=== PATIENT | male | born 1965 | race Caucasian/White ===

== ENCOUNTER 2016-12-20 10:05 | Observation (INO) ==
--- NOTE | 2016-12-20 10:18 | Emergency Department Note ---
Disposition Clinical Impression: DM type 2 (diabetes mellitus, type 2) Qualifiers: Diabetes mellitus complication status: without complication Diabetes mellitus penitentiary insulin use: without penitentiary use Qualified Code(s): E11.9 - Type 2 diabetes mellitus without complications Pancreatitis Qualifiers: Chronicity: acute Pancreatitis type: alcohol induced Acute pancreatitis complication: unspecified Qualified Code(s): K85.20 - Alcohol induced acute pancreatitis without necrosis or infection Disposition: Admitted As Inpatient Condition: Fair Abdominal Pain HPI - General Chief Complaint: ED Abdominal Pain Stated Complaint: Abdominal pain, COLE, and cough Time Seen by Provider: 12/20/16 10:15 Source: patient Mode of arrival: ambulatory Limitations: no limitations Nursing Notes Reviewed: Yes Vital Signs Reviewed: Yes - History of Present Illness HPI Narrative: Patient just released from the hospital for pancreatitis comes back up any shortness of breath chest pain and epigastric pain patient states that the pancreatitis is flaring up patient states that he is unable to ambulate because of shortness of breath patient denies any Pain swelling or edema states his appetite he is unable to eat because the abdominal epigastric pain patient states is progressively worsening he denies fever chills lightheadedness he states that he is having shortness of breath but no cough no hemoptysis no sputum production also systems reviewed otherwise negative patient does note an area of erythema on the left-hand side of his body that is developed over the past couple days Pt Subjective Complaint: abdominal pain 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 Denies: vomiting, diarrhea, fever, chills, constipation, dysuria, hematemesis, hematochezia, melena, hematuria, anorexia, syncope Treatments prior to arrival: prescription analgesics - Related Data Home Medications Medication Instructions Recorded Confirmed Amlodipine Besylate 10 mg PO DAILY 08/25/15 12/20/16 Atorvastatin [Lipitor] 40 mg PO DAILY 08/25/15 12/20/16 Metoprolol Succinate 200 mg PO DAILY 08/25/15 12/20/16 Omeprazole 20 mg PO DAILY 08/25/15 12/20/16 Gabapentin [Neurontin] 100 mg PO TID 12/16/16 12/20/16 Previous Rx's Medication Instructions Recorded Magnesium Oxide [Mag-Ox] 400 mg PO DAILY #3 tablet 12/19/16 Phos-NaK [Neutra-Phos] 1 each PO BID #6 powd.pack 12/19/16 Potassium Chloride 10 meq PO DAILY #3 tab.er.prt 12/19/16 metFORMIN [Glucophage] 500 mg PO BIDWM #60 tablet 12/19/16 Allergies Allergy/AdvReac Type Severity Reaction Status Date / Time No Known Allergies Allergy Verified 11/17/14 14:53 All systems ED: reviewed and negative except as stated. Review of Systems: As Per HPI Constitutional: Denies: fever, chills Eyes: Denies: eye pain ENT ED: Denies: ear pain Cardiovascular: Denies: chest pain, palpitations Respiratory: Denies: cough, dyspnea, wheezes Gastrointestinal: Reports: abdominal pain, nausea, vomiting Genitourinary: Denies: urgency, dysuria Musculoskeletal: Denies: back pain Integumentary: Denies: rash Neurological: Denies: headache Psychiatric: Denies: anxiety Endocrine: Denies: fatigue Hematological/Lymphatic: Denies: easy bleeding Allergic/Immunologic: Denies: facial swelling Abdominal Pain PMH - Past Medical History Medical history: Reports: arthritis, GERD, hyperlipidemia, hypertension, other Reports: pancreatitis Male Surgical History: Reports: cholecystectomy Psychiatric history: Reports: anxiety - Social History Smoking status: Never smoker Alcohol use: Reports: occasionally, heavy, recent Drug use: Reports: none Physical Exam - General Limitations: no limitations General appearance: alert, in no apparent distress, anxious - Head Head exam: atraumatic, normocephalic, normal inspection - Eye Eye exam: Present: normal appearance, PERRL, EOMI - ENT ENT exam: normal exam, normal oropharynx, mucous membranes moist, normal external ear exam - Neck Neck exam: Present: normal inspection, full ROM, trachea midline - Chest Chest inspection: Present: normal inspection, symmetric chest wall rise. Absent : tenderness - Respiratory Respiratory exam: Present: normal lung sounds bilaterally, accessory muscle use - Cardiovascular Cardiovascular exam: Present: tachycardia, normal heart sounds - Abdominal Exam Abdominal exam: Present: soft, tenderness, guarding, normal bowel sounds. Absent: Non-Tender Abdominal tenderness: Present: epigastrium, moderate - Extremities Exam Extremities exam: Present: normal inspection, full ROM, normal capillary refill. Absent: tenderness, pedal edema, joint swelling, calf tenderness - Expanded Lower Extremity Exam Lower leg exam: Present: Homans' sign Neurovascular/Tendon exam: Present: normal capillary refill, normal fine/light touch Gait: observed and normal - Back Exam Back exam: Present: normal inspection, full ROM. Absent: muscle spasm - Neurological Exam Neurological exam: Present: alert, oriented X3, CN II-XII intact - Psychiatric Psychiatric exam: Present: normal affect, normal mood - Skin Skin exam: Present: warm, dry, intact, normal color Course Course Narrative: Patient seen and examined the patient appears to be markedly uncomfortable dyspneic immediate evaluation and workup started for possibly pulmonary emboli as well as recurrent pancreatitis patient little bit of bruising warmth noted to the left side which could be like an early Pete Munroe sign but I did not see any bleeding or bruising or ecchymosis elsewhere A she was given pain medication mating obtained NPL after adequate hydration the patient was given CT scan after discussion with both him and family IE [id number] and patient then was given additional fluids post CT patient received multiple doses of pain medication here in the ER he will be readmitted for the flare for the pancreatitis which appears to be significant on the CAT scan no evidence of any pulmonary emboli noted patient transferred to [facility] Vital Signs Temperature 97.7 F 12/20/16 10:08 Pulse Rate 133 12/20/16 10:08 Respiratory Rate 26 12/20/16 10:08 Blood Pressure 155/102 12/20/16 10:08 O2 Sat by Pulse Oximetry 98 12/20/16 10:08 Temperature 97.6 F 12/22/16 18:37 Pulse Rate 101 12/22/16 18:37 Respiratory Rate 16 12/22/16 18:37 Blood Pressure 150/99 12/22/16 18:37 O2 Sat by Pulse Oximetry 96 12/22/16 18:37 Oxygen Delivery Oxygen Delivery Room Air Abdominal Pain - MDM Narrative Medical decision making narrative: Pulmonary emboli - Differential Diagnosis Differential Diagnosis: Likely: abdominal pain non-specific, diverticulitis, pancreatitis - Medical Records Medical records reviewed: Yes I reviewed the patient's medical records. - Lab Data Lab results reviewed: Yes I reviewed the patient's lab results. Result diagrams: 12/22/16 05:03 12/22/16 05:03 Lab Results 12/20/16 12/20/16 12/20/16 Range/Units 10:58 11:01 11:03 WBC 7.4 (4.3-11.1) K/mcL RBC 4.35 (4.19-5.50) M/mcL Hgb 12.6 L (12.9-16.9) g/dL Hct 36.0 L (37.5-50.1) % MCV 82.8 L (83.0-100.0) fL MCH 29.0 (28.0-33.3) pg MCHC 35.0 (31.6-35.5) g/dL RDW 12.5 (11.5-14.5) % Plt Count 137 L (140-400) K/mcL MPV 11.2 (9.4-12.4) fL Immature Gran % 1.2 (0-4) % Seg Neutrophils % 74.5 % Lymphocytes % 15.2 % Monocytes % 8.1 % Eosinophils % 0.5 % Basophils % 0.5 % Neutrophils # 5.5 (1.6-8.9) K/mcL Lymphocytes # 1.1 (0.6-4.6) K/mcL Monocytes # 0.6 (0.0-1.3) K/mcL Eosinophils # 0.0 (0.0-0.6) K/mcL Basophils # 0.0 (0.0-0.2) K/mcL PT 12.3 H (9.4-12.1) Seconds INR 1.1 APTT 28.9 (26.0-36.0) Seconds D-Dimer 38496 H (0-500) ng/mLFEU Sodium (136-145) mEq/L Potassium (3.5-4.5) mEq/L Chloride (98-109) mEq/L Carbon Dioxide (19-29) mEq/L BUN (8-26) mg/dL Creatinine (0.72-1.25) mg/dL Est GFR ( Amer) (> 60) Est GFR (Non-Af Amer) (> 60) BUN/Creatinine Ratio (6-26) Glucose (70-99) mg/dL Calculated Osmolality (280-300) Calcium (8.6-10.8) mg/dL Total Bilirubin (0.2-1.2) mg/dL Direct Bilirubin (0.0-0.5) mg/dL Indirect Bilirubin (0.0-1.2) mg/dL AST (5-34) Units/L ALT (0-55) Units/L Alkaline Phosphatase (38-126) Units/L Troponin I (0-0.03) ng/mL Serum Total Protein (6.0-8.3) g/dL Albumin (3.5-5.0) g/dL Globulin (2.4-3.5) g/dL Albumin/Globulin Ratio (1.1-2.2) Lipase (8-78) Units/L Urine Color Yellow (Yellow) Urine Clarity Clear (Clear) Urine pH 6.0 (5.0-8.0) pH Units Ur Specific [place] 1.020 (1.010-1.025) Urine Protein 100 H (Neg-Trace) mg/dL Urine Glucose (UA) 100 H (Normal) mg/dL Urine Ketones >=160 H (Negative) mg/dL Urine Blood Trace-intact H (Negative) Urine Nitrite Negative (Negative) Urine Bilirubin Moderate H (Negative) Urine Urobilinogen Normal (Normal) mg/dL Ur Leukocyte Esterase Negative (Negative) Urine Microscopic RBC 0-3 (0-3) per hpf Urine Microscopic WBC 3-5 H (0-3) per hpf Ur Squamous Epith Cells Few (None-Few) per lpf Urine Bacteria Few (None-Few) per hpf Hyaline Casts Few (None-Few) per lpf Granular Casts Few H (None Seen) per lpf Urine Mucus Moderate H (Few) Ur Culture Indicated? NO (NO) 12/20/16 12/20/16 12/20/16 Range/Units 11:03 11:03 11:03 WBC (4.3-11.1) K/mcL RBC (4.19-5.50) M/mcL Hgb (12.9-16.9) g/dL Hct (37.5-50.1) % MCV (83.0-100.0) fL MCH (28.0-33.3) pg MCHC (31.6-35.5) g/dL RDW (11.5-14.5) % Plt Count (140-400) K/mcL MPV (9.4-12.4) fL Immature Gran % (0-4) % Seg Neutrophils % % Lymphocytes % % Monocytes % % Eosinophils % % Basophils % % Neutrophils # (1.6-8.9) K/mcL Lymphocytes # (0.6-4.6) K/mcL Monocytes # (0.0-1.3) K/mcL Eosinophils # (0.0-0.6) K/mcL Basophils # (0.0-0.2) K/mcL PT (9.4-12.1) Seconds INR APTT (26.0-36.0) Seconds D-Dimer (0-500) ng/mLFEU Sodium 136 (136-145) mEq/L Potassium 3.6 (3.5-4.5) mEq/L Chloride 99 (98-109) mEq/L Carbon Dioxide 19 (19-29) mEq/L BUN 9 (8-26) mg/dL Creatinine 0.81 (0.72-1.25) mg/dL Est GFR ( Amer) > 60 (> 60) Est GFR (Non-Af Amer) > 60 (> 60) BUN/Creatinine Ratio 11 (6-26) Glucose 207 H (70-99) mg/dL Calculated Osmolality 287 (280-300) Calcium 9.7 D (8.6-10.8) mg/dL Total Bilirubin (0.2-1.2) mg/dL Direct Bilirubin (0.0-0.5) mg/dL Indirect Bilirubin (0.0-1.2) mg/dL AST (5-34) Units/L ALT (0-55) Units/L Alkaline Phosphatase (38-126) Units/L Troponin I 0.00 (0-0.03) ng/mL Serum Total Protein (6.0-8.3) g/dL Albumin (3.5-5.0) g/dL Globulin (2.4-3.5) g/dL Albumin/Globulin Ratio (1.1-2.2) Lipase 119 H (8-78) Units/L Urine Color (Yellow) Urine Clarity (Clear) Urine pH (5.0-8.0) pH Units Ur Specific [place] (1.010-1.025) Urine Protein (Neg-Trace) mg/dL Urine Glucose (UA) (Normal) mg/dL Urine Ketones (Negative) mg/dL Urine Blood (Negative) Urine Nitrite (Negative) Urine Bilirubin (Negative) Urine Urobilinogen (Normal) mg/dL Ur Leukocyte Esterase (Negative) Urine Microscopic RBC (0-3) per hpf Urine Microscopic WBC (0-3) per hpf Ur Squamous Epith Cells (None-Few) per lpf Urine Bacteria (None-Few) per hpf Hyaline Casts (None-Few) per lpf Granular Casts (None Seen) per lpf Urine Mucus (Few) Ur Culture Indicated? (NO) 12/20/16 Range/Units 11:03 WBC (4.3-11.1) K/mcL RBC (4.19-5.50) M/mcL Hgb (12.9-16.9) g/dL Hct (37.5-50.1) % MCV (83.0-100.0) fL MCH (28.0-33.3) pg MCHC (31.6-35.5) g/dL RDW (11.5-14.5) % Plt Count (140-400) K/mcL MPV (9.4-12.4) fL Immature Gran % (0-4) % Seg Neutrophils % % Lymphocytes % % Monocytes % % Eosinophils % % Basophils % % Neutrophils # (1.6-8.9) K/mcL Lymphocytes # (0.6-4.6) K/mcL Monocytes # (0.0-1.3) K/mcL Eosinophils # (0.0-0.6) K/mcL Basophils # (0.0-0.2) K/mcL PT (9.4-12.1) Seconds INR APTT (26.0-36.0) Seconds D-Dimer (0-500) ng/mLFEU Sodium (136-145) mEq/L Potassium (3.5-4.5) mEq/L Chloride (98-109) mEq/L Carbon Dioxide (19-29) mEq/L BUN (8-26) mg/dL Creatinine (0.72-1.25) mg/dL Est GFR ( Amer) (> 60) Est GFR (Non-Af Amer) (> 60) BUN/Creatinine Ratio (6-26) Glucose (70-99) mg/dL Calculated Osmolality (280-300) Calcium (8.6-10.8) mg/dL Total Bilirubin 0.6 (0.2-1.2) mg/dL Direct Bilirubin 0.3 (0.0-0.5) mg/dL Indirect Bilirubin 0.3 (0.0-1.2) mg/dL AST 14 (5-34) Units/L ALT 11 (0-55) Units/L Alkaline Phosphatase 83 (38-126) Units/L Troponin I (0-0.03) ng/mL Serum Total Protein 7.3 (6.0-8.3) g/dL Albumin 2.6 L (3.5-5.0) g/dL Globulin 4.7 H (2.4-3.5) g/dL Albumin/Globulin Ratio 0.6 L (1.1-2.2) Lipase (8-78) Units/L Urine Color (Yellow) Urine Clarity (Clear) Urine pH (5.0-8.0) pH Units Ur Specific [place] (1.010-1.025) Urine Protein (Neg-Trace) mg/dL Urine Glucose (UA) (Normal) mg/dL Urine Ketones (Negative) mg/dL Urine Blood (Negative) Urine Nitrite (Negative) Urine Bilirubin (Negative) Urine Urobilinogen (Normal) mg/dL Ur Leukocyte Esterase (Negative) Urine Microscopic RBC (0-3) per hpf Urine Microscopic WBC (0-3) per hpf Ur Squamous Epith Cells (None-Few) per lpf Urine Bacteria (None-Few) per hpf Hyaline Casts (None-Few) per lpf Granular Casts (None Seen) per lpf Urine Mucus (Few) Ur Culture Indicated? (NO) - Radiology Data Radiology results reviewed: Yes I reviewed the patient's radiology results. ITS Impressions Abdomen/Pelvis CT 12/20/16 10:51 IMPRESSION: Acute pancreatitis. No free air or pseudocyst noted at this time. D/ / Nilesh Cramer MD / Nilesh Cramer MD Interpreting Provider: Nilehs Cramer MD Chest CTA 12/20/16 10:51 IMPRESSION: 1. No evidence of pulmonary embolism 2. Small a moderate bilateral pleural effusions with compressive atelectasis. Probable pulmonary venous hypertension D/ / Abdon Martinez MD / Abdon Martinez MD Interpreting Provider: Abdon Martinez MD - EKG Data EKG attestation: Yes I reviewed and interpreted this EKG. EKG results narrative: Sinus tach rate 119 MT 167 QRS 96 QT 337 axis XL
[2016-12-20] MEDS ORDERED: *HR* Promethazine 25 MG/ML VIAL IVP ONE (10:22)
[2016-12-20] MEDS ORDERED: *HR* HYDROmorphone (PF) 1 MG/ML SYRINGE IVP ONE ×3 (10:22→14:52)
[2016-12-20] MEDS ORDERED: Pantoprazole 40 MG VIAL IVP ONE (10:22)
[2016-12-20] MEDS ORDERED: 0.9 % Sodium Chloride 1,000 ML IVC SCH (10:30)
[2016-12-20 10:59] LABS: Bilirubin,Urine Moderate (Negative); Blood,Urine Trace-intact (Negative); Clarity,Urine Clear (Clear); Color,Urine Yellow (Yellow); Glucose,Urine (UA) 100 mg/dL (Normal); Ketones,Urine >=160 mg/dL (Negative); Leukocyte Esterase,Urine Negative (Negative); Nitrite,Urine Negative (Negative); Protein,Urine 100 mg/dL (Neg-Trace); Urobilinogen,Urine Normal (Normal)
[2016-12-20 11:10] LABS: Basophils % 0.5 %; Eosinophils % 0.5 %; Hemoglobin 12.6 g/dL (12.9-16.9); Immature Granulocytes % 1.2 % (0-4); Lymphocytes # 1.1 K/mcL (0.6-4.6); Lymphocytes % 15.2 %; Mean Corpuscular Volume 82.8 fL (83.0-100.0); Mean Platelet Volume 11.2 fL (9.4-12.4); Monocytes # 0.6 K/mcL (0.0-1.3); Monocytes % 8.1 %; Neutrophils # 5.5 K/mcL (1.6-8.9); Platelet Count 137 K/mcL (140-400); Red Blood Count 4.35 M/mcL (4.19-5.50); Red Cell Distribution Width 12.5 % (11.5-14.5); Segmented Neutrophils % 74.5 %
[2016-12-20 11:22] LABS: INR 1.1; Prothrombin Time 12.3 Seconds (9.4-12.1)
[2016-12-20 11:25] LABS: Bacteria,Urine Few per hpf (None-Few); Granular Casts,Urine Few per lpf (None Seen); Hyaline Casts,Urine Few per lpf (None-Few); Mucus,Urine Moderate (Few); RBC,Urine 0-3 per hpf (0-3); Squamous Epithelial Cell,Urine Few per lpf (None-Few)
[2016-12-20 11:25] LABS: Activated Partial Thrombo Time 28.9 Seconds (26.0-36.0)
[2016-12-20 12:24] LABS: BUN/Creatinine Ratio 11 (6-26); Blood Urea Nitrogen 9 mg/dL (8-26); Calcium 9.7 mg/dL (8.6-10.8); Carbon Dioxide 19 mEq/L (19-29); Chloride 99 mEq/L (98-109); Glucose 207 mg/dL (70-99); Osmolality,Calculated 287 (280-300); Potassium 3.6 mEq/L (3.5-4.5); Sodium 136 mEq/L (136-145); eGFR For African Americans > 60 (> 60); eGFR For Non-African Americans > 60 (> 60)
[2016-12-20 12:26] LABS: Albumin 2.6 g/dL (3.5-5.0); Albumin/Globulin Ratio 0.6 (1.1-2.2); Bilirubin,Direct 0.3 mg/dL (0.0-0.5); Bilirubin,Indirect 0.3 mg/dL (0.0-1.2); Bilirubin,Total 0.6 mg/dL (0.2-1.2); Globulin 4.7 g/dL (2.4-3.5); Total Protein 7.3 g/dL (6.0-8.3)
[2016-12-20] MEDS ORDERED: 0.9 % Sodium Chloride 1,000 ML IVC ONE (12:41)
[2016-12-20] MEDS ORDERED: Naloxone 0.4 MG/ML INJ IVP PRN ×2 (17:17)
[2016-12-20] MEDS ORDERED: *HR* HYDROmorphone (PF) 1 MG/ML SYRINGE IVP PRN (17:17)
[2016-12-20] MEDS: 0.9 % Sodium Chloride 1,000 ML IVC SCH (19:20)
[2016-12-20] MEDS: *HR* HYDROmorphone (PF) 1 MG/ML SYRINGE IVP PRN ×2 (21:16→23:18)
[2016-12-20] MEDS: Gabapentin 100 MG CAPSULE PO SCH (21:17)
[2016-12-21] MEDS: *HR* HYDROmorphone (PF) 1 MG/ML SYRINGE IVP PRN ×10 (01:22→23:04)
[2016-12-21] MEDS: 0.9 % Sodium Chloride 1,000 ML IVC SCH ×2 (03:23→08:51)
[2016-12-21 05:27] LABS: Basophils % 0.6 %; Eosinophils # 0.1 K/mcL (0.0-0.6); Hematocrit 34.9 % (37.5-50.1); Hemoglobin 12.1 g/dL (12.9-16.9); Immature Granulocytes % 1.3 % (0-4); Lymphocytes # 1.1 K/mcL (0.6-4.6); Lymphocytes % 16.8 %; Mean Corpuscular HGB Conc 34.7 g/dL (31.6-35.5); Mean Corpuscular Hemoglobin 28.8 pg (28.0-33.3); Mean Corpuscular Volume 83.1 fL (83.0-100.0); Mean Platelet Volume 11.3 fL (9.4-12.4); Monocytes # 0.8 K/mcL (0.0-1.3); Monocytes % 12.3 %; Neutrophils # 4.5 K/mcL (1.6-8.9); Platelet Count 139 K/mcL (140-400); Red Cell Distribution Width 12.7 % (11.5-14.5)
[2016-12-21 05:53] LABS: BUN/Creatinine Ratio 9 (6-26); Blood Urea Nitrogen 6 mg/dL (8-26); Calcium 9.3 mg/dL (8.6-10.8); Carbon Dioxide 22 mEq/L (19-29); Chloride 101 mEq/L (98-109); Glucose 159 mg/dL (70-99); Lipase 128 Units/L (8-78); Osmolality,Calculated 283 (280-300); Potassium 3.4 mEq/L (3.5-4.5); Sodium 136 mEq/L (136-145); eGFR For African Americans > 60 (> 60); eGFR For Non-African Americans > 60 (> 60)
[2016-12-21] MEDS: amLODIPine 5 MG TABLET PO SCH (08:50)
[2016-12-21] MEDS ORDERED: Metoprolol XL (24 HR) Succ 50 MG TAB.ER.24H PO SCH (09:00)
[2016-12-21] MEDS: Metoprolol XL (24 HR) Succ 50 MG TAB.ER.24H PO SCH ×2 (09:29→20:50)
--- NOTE | 2016-12-21 10:44 | Electrocardiograph Report ---
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
[2016-12-21] MEDS: Gabapentin 100 MG CAPSULE PO SCH ×3 (11:22→20:50)
[2016-12-21] MEDS: Magnesium Oxide 400 MG TABLET PO SCH (11:34)
--- NOTE | 2016-12-21 15:41 | Internal Med History&Physical ---
Date of Encounter: 12/21/16 Time of Encounter: 15:15 Assessment and Plan (1) Abdominal pain Current visit: No Status: Acute Probably due to residual pancreatitis. Since his pain is lessening will continue present regimen and recheck labs in a.m. Qualifiers: Abdominal location: epigastric Qualified Code(s): R10.13 - Epigastric pain (2) DM type 2 (diabetes mellitus, type 2) Current visit: No Status: Acute Continue Accu-Cheks with SSI. He can restart metformin when dietary intake is adequate. Qualifiers: Diabetes mellitus complication status: without complication Diabetes mellitus usp insulin use: without usp use Qualified Code(s): E11.9 - Type 2 diabetes mellitus without complications (3) Hypophosphatemia Current visit: No Status: Acute He was started on Neutra-Phos at discharge. We will recheck labs in a.m. Internal Medicine - H&P: HPI Chief complaint: Abdominal pain Admitted From: Home Plans for Post Hospital Care: Home History of present illness: Mr. Loza is a 51 year old male who returned to emergency room December 20 after an December 16 -December 19 hospitalization at [facility] for acute pancreatitis. He had significantly improved during his hospital stay and was taking in adequate amounts of food and fluid by time of discharge with minimal abdominal discomfort remaining. He reports shortly after arriving home he took in a small quantity of chicken broth and noticed he was having recurrence of the abdominal discomfort. After the pain persisted for several hours he called his PCP office who recommended he return to emergency room. He was evaluated and CT scan showed evidence of pancreatic inflammation. He was admitted back to [facility] for ongoing care needs. He reported last admission he drank heavily the evening of December 14 after ingesting no alcohol since July. His GI history is pertinent otherwise for cholecystectomy January 2016. He denies documented liver disease. He had colonoscopy and EGD 2013 at [facility] with colonoscopy showing polyps. Past Med Surg Social Fam HX - Past Medical History Medical history: arthritis, GERD, hyperlipidemia, hypertension, other Psychiatric history: anxiety - Past Surgical History Surgical History: non-contributory, herniorrhaphy, orthopedic, other - Social History Smoking Status: Never smoker Smokeless Tobacco Status: No Alcohol use: occasionally, heavy, recent Drug use: none Internal Medicine - H&P: Meds Amlodipine Besylate 10 mg PO DAILY 08/25/15 [History] Atorvastatin [Lipitor] 40 mg PO DAILY 08/25/15 [History] Metoprolol Succinate 200 mg PO DAILY 08/25/15 [History] Omeprazole 20 mg PO DAILY 08/25/15 [History] Gabapentin [Neurontin] 100 mg PO TID 12/16/16 [History] Magnesium Oxide [Mag-Ox] 400 mg PO DAILY #3 tablet 12/19/16 [Rx] Phos-NaK [Neutra-Phos] 1 each PO BID #6 powd.pack 12/19/16 [Rx] Potassium Chloride 10 meq PO DAILY #3 tab.er.prt 12/19/16 [Rx] metFORMIN [Glucophage] 500 mg PO BIDWM #60 tablet 12/19/16 [Rx] 3 Allergy/AdvReac Type Severity Reaction Status Date / Time No Known Allergies Allergy Verified 11/17/14 14:53 All Systems PM: A 10-system review of systems was performed and is negative for pertinent findings except as documented above in the HPI. Review of systems: Review of systems from his 12/17/2016 [facility] H&P were reviewed and revised as below. Gen.: His weight has been stable at approximately 91 kg since the August 2015 hospitalization Cardiovascular: He has a history of hypertension. He denies VT heart failure angina DVT or pulmonary embolus. Respiratory: He is a lifelong nonsmoker and has no known chronic lung disease. He has had negative workup for MAITE. GI: As per history of present illness : He has history of kidney stones in 2009 but denies other kidney bladder prostate disorders Neurologic: He denies large distribution strokes or seizures. Endocrine: He has hyperlipidemia but no known diabetes or thyroid disease Hematology/oncology: He denies blood disorders cancers or anemia Psychiatric: He has anxiety but no significant depression or other mental health issues Musk skeletal: He denies arthritis or osteoporosis. He states he has had gout in the past - Constitutional Vitals: Temp Pulse Resp BP Pulse Ox 98.0 F 123 18 141/91 95 12/21/16 11:00 12/21/16 11:00 12/21/16 11:00 12/21/16 11:00 12/21/16 11:00 Exam: Gen.: He is a well-developed well-nourished male lying in bed who appears in no severe distress at present time. He states he has epigastric discomfort. HEENT: Head is atraumatic and normocephalic. Eyes: EOMI. There is no scleral icterus. Mouth: Mucosa is moist. Neck: Supple and nontender. There is no thyromegaly or adenopathy noted. Heart: Regular rate 120/m. No murmurs or gallops are heard. Lungs: No wheezes or crackles are heard. Abdomen: Bowel sounds are present but diminished. There is mild epigastric discomfort to palpation. No masses or guarding noted. Extremities: There is no cyanosis edema or clubbing noted. Dorsalis pedis and posterior tibial pulses are 1-2 over 2 bilaterally. Neurologic: Mental status: He is talkative and a good historian. Cranial nerves : Smile is symmetric. Forehead wrinkles bilaterally. Tongue protrudes midline. EOMI. Motor: There is no pronator drift. Cerebellar: Finger to nose is intact bilaterally. Skin: Warm and dry Internal Med - H&P Results - Labs CBC & Chem 7: 12/21/16 04:48 12/21/16 04:48 Labs: Short CBC 12/21/16 Range/Units 04:48 WBC 6.7 (4.3-11.1) K/mcL Hgb 12.1 L (12.9-16.9) g/dL Hct 34.9 L (37.5-50.1) % Plt Count 139 L (140-400) K/mcL Neutrophils # 4.5 (1.6-8.9) K/mcL BMP 12/21/16 04:48 Sodium 136 Potassium 3.4 L Chloride 101 Carbon Dioxide 22 BUN 6 L Creatinine 0.69 L Glucose 159 H Calcium 9.3
[2016-12-21] MEDS: 0.9 % Sodium Chloride w KCl 20 MEQ/1,000 ML MLS IVC SCH (16:24)
[2016-12-21] MEDS ORDERED: Ondansetron ODT 4 MG TAB.RAPDIS PO PRN (22:04)
[2016-12-21] MEDS: Mag Hydrox/Al Hydrox/Simeth 30 ML UDC PO PRN (22:23)
[2016-12-22] MEDS: *HR* HYDROmorphone (PF) 1 MG/ML SYRINGE IVP PRN ×10 (01:12→23:15)
[2016-12-22] MEDS: 0.9 % Sodium Chloride w KCl 20 MEQ/1,000 ML MLS IVC SCH ×4 (01:19→20:23)
[2016-12-22] MEDS: Mag Hydrox/Al Hydrox/Simeth 30 ML UDC PO PRN (03:12)
[2016-12-22 05:51] LABS: Basophils % 0.4 %; Eosinophils # 0.1 K/mcL (0.0-0.6); Eosinophils % 1.3 %; Hematocrit 33.9 % (37.5-50.1); Hemoglobin 11.8 g/dL (12.9-16.9); Immature Granulocytes % 1.7 % (0-4); Mean Corpuscular HGB Conc 34.8 g/dL (31.6-35.5); Mean Corpuscular Hemoglobin 28.8 pg (28.0-33.3); Mean Corpuscular Volume 82.7 fL (83.0-100.0); Monocytes % 13.7 %; Neutrophils # 4.8 K/mcL (1.6-8.9); Platelet Count 155 K/mcL (140-400); Red Cell Distribution Width 12.6 % (11.5-14.5); Segmented Neutrophils % 68.9 %
[2016-12-22 06:12] LABS: Alanine Aminotransferase 9 Units/L (0-55); Albumin 2.4 g/dL (3.5-5.0); Albumin/Globulin Ratio 0.6 (1.1-2.2); Alkaline Phosphatase 91 Units/L (38-126); Aspartate Amino Transferase 16 Units/L (5-34); BUN/Creatinine Ratio 9 (6-26); Bilirubin,Total 0.4 mg/dL (0.2-1.2); Blood Urea Nitrogen 6 mg/dL (8-26); Calcium 9.3 mg/dL (8.6-10.8); Carbon Dioxide 23 mEq/L (19-29); Chloride 99 mEq/L (98-109); Globulin 4.3 g/dL (2.4-3.5); Glucose 182 mg/dL (70-99); Magnesium 1.1 mg/dL (1.6-2.6); Osmolality,Calculated 282 (280-300); Phosphorous 2.4 mg/dL (2.3-4.7); Potassium 3.5 mEq/L (3.5-4.5); Sodium 135 mEq/L (136-145); Total Protein 6.7 g/dL (6.0-8.3); eGFR For African Americans > 60 (> 60); eGFR For Non-African Americans > 60 (> 60)
[2016-12-22] MEDS: Magnesium Oxide 400 MG TABLET PO SCH (07:52)
[2016-12-22] MEDS: Metoprolol XL (24 HR) Succ 50 MG TAB.ER.24H PO SCH ×2 (07:52→20:24)
[2016-12-22] MEDS: Gabapentin 100 MG CAPSULE PO SCH ×3 (07:52→20:24)
[2016-12-22] MEDS: amLODIPine 5 MG TABLET PO SCH (07:52)
--- NOTE | 2016-12-22 09:41 | Internal Med Progress Note ---
Date of Encounter: 12/22/16 Time of Encounter: 09:30 - Assessment and plan (1) Abdominal pain Current Visit: No Status: Acute Assessment and plan: December 22. Improving. Continue present regimen. Qualifiers: Abdominal location: epigastric Qualified Code(s): R10.13 - Epigastric pain (2) DM type 2 (diabetes mellitus, type 2) Current Visit: No Status: Acute Assessment and plan: December 22. Continue Accu-Cheks with SSI. We will restart metformin when dietary intake is adequate. 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 Phosphorus level now normal. We will discontinue Neutra-Phos (4) Hypomagnesemia Current Visit: No Status: Acute Assessment and plan: December 22. Magnesium level 1.1 today. We will give IV magnesium sulfate. (5) Gout Current Visit: No Status: Chronic Assessment and plan: December 22. Will give indomethacin today and probably start allopurinol tomorrow Qualifiers: Gout site: toe Gout etiology: unspecified cause Chronicity: chronic Laterality: left Presence of tophus: without tophus Qualified Code(s): M1A.9XX0 - Chronic gout, unspecified, without tophus (tophi) - Subjective Interval history: December 22. His abdominal pain has lessened. He has developed pain in his left foot. He confirms a history of gout. - Constitutional Vitals: Temp Pulse Resp BP Pulse Ox 98.0 F 107 16 153/101 95 12/22/16 07:02 12/22/16 07:02 12/22/16 07:02 12/22/16 07:02 12/22/16 07:02 Exam: He has pain on movement of the left first MTP joint and rotation of the forefoot. There is no erythema or joint effusion seen. Abdomen shows bowel sounds present. There is mild tenderness to mild palpation. I reviewed his medications and lab results. Internal Medicine: Result - Labs CBC & Chem 7: 12/22/16 05:03 12/22/16 05:03 Labs: Short CBC 12/22/16 Range/Units 05:03 WBC 6.9 (4.3-11.1) K/mcL Hgb 11.8 L (12.9-16.9) g/dL Hct 33.9 L (37.5-50.1) % Plt Count 155 (140-400) K/mcL Neutrophils # 4.8 (1.6-8.9) K/mcL BMP 12/22/16 05:03 Sodium 135 L Potassium 3.5 Chloride 99 Carbon Dioxide 23 BUN 6 L Creatinine 0.68 L Glucose 182 H Calcium 9.3 Liver Function 12/22/16 Range/Units 05:03 Total Bilirubin 0.4 (0.2-1.2) mg/dL AST 16 (5-34) Units/L ALT 9 (0-55) Units/L Alkaline Phosphatase 91 (38-126) Units/L Albumin 2.4 L (3.5-5.0) g/dL - ABG Interpretation ABG results: PT/INR, D-dimer PT 12.3 Seconds (9.4-12.1) H 12/20/16 11:01 D-Dimer [id number] ng/mLFEU (0-500) H 12/20/16 11:01 Consult Discharge Plan - Plan Referrals: Annette Kendall, MAILING SECTION CLERK [Primary Care Provider] - 1 week
[2016-12-22] MEDS ORDERED: Magnesium Sulfate 1 GM in D5% in Water 100 ML IVPB ONE (09:44)
[2016-12-22] MEDS: Indomethacin 25 MG CAPSULE PO SCH ×2 (11:24→16:42)
[2016-12-23] MEDS: *HR* HYDROmorphone (PF) 1 MG/ML SYRINGE IVP PRN ×3 (02:28→08:23)
[2016-12-23 06:10] LABS: Basophils % 0.8 %; Eosinophils # 0.1 K/mcL (0.0-0.6); Eosinophils % 1.1 %; Hematocrit 33.5 % (37.5-50.1); Hemoglobin 11.6 g/dL (12.9-16.9); Immature Granulocytes % 2.7 % (0-4); Lymphocytes # 0.9 K/mcL (0.6-4.6); Lymphocytes % 18.7 %; Mean Corpuscular HGB Conc 34.6 g/dL (31.6-35.5); Mean Corpuscular Hemoglobin 28.7 pg (28.0-33.3); Mean Corpuscular Volume 82.9 fL (83.0-100.0); Mean Platelet Volume 10.4 fL (9.4-12.4); Monocytes # 0.6 K/mcL (0.0-1.3); Monocytes % 12.8 %; Platelet Count 171 K/mcL (140-400); Red Blood Count 4.04 M/mcL (4.19-5.50); Red Cell Distribution Width 12.7 % (11.5-14.5); Segmented Neutrophils % 63.9 %
[2016-12-23] MEDS: 0.9 % Sodium Chloride w KCl 20 MEQ/1,000 ML MLS IVC SCH (06:13)
[2016-12-23 06:32] LABS: BUN/Creatinine Ratio 11 (6-26); Blood Urea Nitrogen 7 mg/dL (8-26); Calcium 9.3 mg/dL (8.6-10.8); Carbon Dioxide 25 mEq/L (19-29); Chloride 102 mEq/L (98-109); Glucose 207 mg/dL (70-99); Magnesium 1.6 mg/dL (1.6-2.6); Osmolality,Calculated 290 (280-300); Potassium 3.7 mEq/L (3.5-4.5); Sodium 138 mEq/L (136-145); eGFR For African Americans > 60 (> 60); eGFR For Non-African Americans > 60 (> 60)
[2016-12-23 06:56] VITALS: BP 147/93
[2016-12-23] MEDS: amLODIPine 5 MG TABLET PO SCH (08:01)
[2016-12-23] MEDS: Gabapentin 100 MG CAPSULE PO SCH (08:02)
[2016-12-23] MEDS: Metoprolol XL (24 HR) Succ 50 MG TAB.ER.24H PO SCH (08:03)
[2016-12-23] MEDS: Indomethacin 25 MG CAPSULE PO SCH (08:04)
--- NOTE | 2016-12-23 10:26 | Discharge Summary ---
Date of Encounter: 12/23/16 Time of Encounter: 10:17 - Discharge Diagnosis (1) Abdominal pain Priority: Primary Status: Acute Qualifiers: Abdominal location: epigastric Qualified Code(s): R10.13 - Epigastric pain (2) DM type 2 (diabetes mellitus, type 2) Priority: Secondary Status: Acute Qualifiers: Diabetes mellitus complication status: without complication Diabetes mellitus intermodal customer service insulin use: without intermodal customer service use Qualified Code(s): E11.9 - Type 2 diabetes mellitus without complications (3) Hypophosphatemia Priority: Secondary Status: Resolved (4) Hypomagnesemia Priority: Secondary Status: Acute (5) Gout Priority: Secondary Status: Chronic Qualifiers: Gout site: toe Gout etiology: unspecified cause Chronicity: chronic Laterality: left Presence of tophus: without tophus Qualified Code(s): M1A.9XX0 - Chronic gout, unspecified, without tophus (tophi) - Discharge Medications Prescriptions: Allopurinol [Zyloprim 100 MG] 200 mg PO DAILY #60 tablet Indomethacin 50 mg PO TIDWM #6 capsule Home Medications: Amlodipine Besylate 10 mg PO DAILY 08/25/15 [History] Atorvastatin [Lipitor] 40 mg PO DAILY 08/25/15 [History] Metoprolol Succinate 200 mg PO DAILY 08/25/15 [History] Omeprazole 20 mg PO DAILY 08/25/15 [History] Gabapentin [Neurontin] 100 mg PO TID 12/16/16 [History] Potassium Chloride 10 meq PO DAILY #3 tab.er.prt 12/19/16 [Rx] metFORMIN [Glucophage] 500 mg PO BIDWM #60 tablet 12/19/16 [Rx] Allopurinol [Zyloprim 100 MG] 200 mg PO DAILY #60 tablet 12/23/16 [Rx] Indomethacin 50 mg PO TIDWM #6 capsule 12/23/16 [Rx] Allergies/Adverse Reactions: 3 Allergy/AdvReac Type Severity Reaction Status Date / Time No Known Allergies Allergy Verified 11/17/14 14:53 Date of admission: 12/20/16 15:28 Primary care physician: Annette Kendall CNP - Patient Status Disposition: Home, Self-Care Condition: Fair Functional capacity at discharge: independent ambulation Overall status at discharge: patient is progressing back to baseline - Discharge Instructions Follow Up With: Annette Kendall CNP [Primary Care Provider] - 1 week - Diet and Activity Activity: resume usual activities as tolerated Diet: advance to your usual diet Hospital course: Mr. Loza is a 51 year old male who returned to emergency room December 20 after an December 16 -December 19 hospitalization at [facility] for acute pancreatitis. He had significantly improved during his hospital stay and was taking in adequate amounts of food and fluid by time of discharge with minimal abdominal discomfort remaining. He reports shortly after arriving home he took in a small quantity of chicken broth and noticed he was having recurrence of the abdominal discomfort. After the pain persisted for several hours he called his PCP office who recommended he return to emergency room. He was evaluated and CT scan showed evidence of pancreatic inflammation. He was admitted back to [facility] for ongoing care needs. Initial orders were written by the emergency room physician. I saw him on December 21 and performed the history and physical. [place] [id number] in [place] room. Chest CTA of chest showed no evidence of pulmonary embolism. I felt it was likely due to pancreatic inflammation. He had gradual lessening of his abdominal pain with IV fluids and analgesics when necessary. Lipase remained stable at 128 on December 21. He tolerated oral intake satisfactorily by the morning of discharge without vomiting. He complained of pain in his left foot the day after admission. Uric acid level returned elevated at 8.3. He was started on indomethacin and there was significant improvement in the pain. He will continue indomethacin at discharge and also be given allopurinol. On December 23 he was stable for discharge home. He will follow with his PCP Annette Kendall CNP within 1 week. - Time Spent with Patient Total time spent providing and/or coordinating discharge services: - Constitutional Vitals: Temp Pulse Resp BP Pulse Ox 97.8 F 101 18 147/93 96 12/23/16 06:52 12/23/16 06:52 12/23/16 06:52 12/23/16 06:52 12/23/16 06:52
== END 2016-12-23 11:31 | disposition home or self-care (01) ==
LOC: EMEROOPIK 10:05 → INPPIK 10:05
PROVIDERS: ADMIT Internal Medicine; ATTEND Internal Medicine